=== PATIENT | female | born 1985 | race American Indian/Alaskan Native ===

== ENCOUNTER 2019-04-20 11:01 | Emergency (ER) | payer SELFPAY ==
[2019-04-20 11:06] VITALS: BP 146/77
--- NOTE | 2019-04-20 11:16 | Emergency Department Report ---
Blank Doc - Documentation Documentation: 33-year-old female that presents with right ankle pain after fall. This initial assessment/diagnostic orders/clinical plan/treatment(s) is/are subject to change based on patient's health status, clinical progression and re- assessment by fellow clinical providers in the ED. Further treatment and workup at subsequent clinical providers discretion. Patient/guardians urged not to elope from the ED as their condition may be serious if not clinically assessed and managed. Initial orders include: 1- Patient sent to [facility] for further evaluation and treatment 2- xrays
--- NOTE | 2019-04-20 11:54 | XRay Report ---
RIGHT ANKLE, 3 VIEWS INDICATION: pain/swelling r/t injury. COMPARISON: None. IMPRESSION: Normal bone mineralization. No acute osseous findings or joint pathology is identified. Moderate to severe soft tissue swelling is evident. Signer Name: Ant Lucas Jr, MD Signed: 04/20/2019 11:49 AM Workstation Name: [id number]
[2019-04-20] MEDS ORDERED: IBUPROFEN 800 MG TAB PO ONE (12:00)
--- NOTE | 2019-04-20 12:04 | Emergency Department Report ---
ED Lower Extremity HPI - General Chief Complaint: Extremity Injury, Lower Stated Complaint: ANKLE/FOOT PAIN Time Seen by Provider: 04/20/19 11:15 Source: patient Mode of arrival: Wheelchair Limitations: No Limitations - History of Present Illness Initial Comments: 33-year-old female presents to ED with right ankle pain. She reports falling yesterday. States ankle has been painful and swollen. She denies any numbness or tingling in the feet or toes. MD Complaint: ankle injury (right) -: days(s) (1) Injury: Ankle: Right Severity: moderate Improves With: immobilization Worsens With: weight bearing Context: fall Associated Symptoms: swelling, unable to bear weight. denies: numbness, tingling - Related Data Previous Rx's Medication Instructions Recorded Last Taken Type Naproxen [Naprosyn] 500 mg PO BID #20 tablet 04/20/19 Unknown Rx Allergies Allergy/AdvReac Type Severity Reaction Status Date / Time No Known Allergies Allergy Unverified 04/20/19 11:05 ED Review of Systems ROS: Stated complaint: ANKLE/FOOT PAIN Other details as noted in HPI Comment: All other systems reviewed and negative Musculoskeletal: as per HPI Neurological: denies: numbness, paresthesias ED Past Medical Hx - Past Medical History Previous Medical History?: No - Surgical History Past Surgical History?: No - Social History Smoking Status: Current Every Day Smoker Substance Use Type: None, Marijuana - Medications Home Medications: Home Medications Medication Instructions Recorded Confirmed Last Taken Type Naproxen [Naprosyn] 500 mg PO BID #20 tablet 04/20/19 Unknown Rx ED Physical Exam - General Limitations: No Limitations General appearance: alert, in no apparent distress - Head Head exam: Present: atraumatic, normocephalic - Eye Eye exam: Present: normal appearance - ENT ENT exam: Present: mucous membranes moist - Neck Neck exam: Present: normal inspection - Respiratory Respiratory exam: Present: normal lung sounds bilaterally. Absent: respiratory distress - Cardiovascular Cardiovascular Exam: Present: regular rate, normal rhythm - GI/Abdominal GI/Abdominal exam: Absent: distended - Extremities Exam Extremities exam: Present: other (moderate swelling to the right ankle, tenderness to the lateral aspect of the right ankle, the pupils and tach, extremity is warm, cap refill is normal). Absent: calf tenderness - Neurological Exam Neurological exam: Present: alert, oriented X3. Absent: motor sensory deficit - Psychiatric Psychiatric exam: Present: normal affect, normal mood - Skin Skin exam: Present: warm, dry, intact, normal color ED Course Vital Signs 04/20/19 11:05 Temperature 98.1 F Pulse Rate 90 Respiratory 18 Rate Blood Pressure 146/77 O2 Sat by Pulse 96 Oximetry ED Lower Extremity MDM - Radiology Data Radiology results: report reviewed, image reviewed - Medical Decision Making 33-year-old female with falling yesterday right ankle pain. On exam patient has moderate swelling of the right ankle with tenderness present on exam, decreased range of motion secondary to pain. X-rays show no signs of fracture. Patient will be given crutches, Anibal wrap will be placed. Patient advised on RICE therapy. Outpatient resources given. Return precautions given. Will discharge at this time. - Differential Diagnosis fracture, sprain Critical care attestation.: If time is entered above; I have spent that time in minutes in the direct care of this critically ill patient, excluding procedure time. ED Disposition Clinical Impression: Right ankle sprain Disposition: - TO HOME OR SELFCARE Is pt being admited?: No Condition: Stable Instructions: Ankle Sprain (ED) Prescriptions: Naproxen [Naprosyn] 500 mg PO BID #20 tablet Referrals: [facility] [Provider Group] - 3-5 Days EBONY OROURKE MD [Staff Physician] - 3-5 Days Time of Disposition: 12:04
== END 2019-04-20 12:41 | disposition home or self-care (01) ==
LOC: ED 11:01
DX: S93.401A Sprain of unspecified ligament of right ankle, initial encounter (principal); F17.200 Nicotine dependence, unspecified, uncomplicated; F12.10 Cannabis abuse, uncomplicated; W18.30XA Fall on same level, unspecified, initial encounter; Y93.89 Activity, other specified; Y92.89 Other specified places as the place of occurrence of the external cause; Y99.8 Other external cause status